=== PATIENT | male | born 1955 | race American Indian/Alaskan Native ===

== ENCOUNTER 2016-11-30 17:05 | Outpatient (CLI) | payer OTHER | END 2016-11-30 17:06 | disposition home or self-care (01) | LOC: LABHHL 17:05 | PROVIDERS: ATTEND Internal Medicine Gastroenterology | DX: Z12.11 Encounter for screening for malignant neoplasm of colon (principal); K64.8 Other hemorrhoids; K62.89 Other specified diseases of anus and rectum | CPT/HCPCS: 88305 ==

== ENCOUNTER 2018-07-23 13:01 | Outpatient (CLI) | payer MEDICARE ==
--- NOTE | 2018-07-23 14:24 | XRay Report ---
XRAY LEFT KNEE 2 VIEWS: 07/23/18 13:01:00 CLINICAL: Hard nodule in back of knee. FINDINGS: Mild osteopenia. No fracture or dislocation. Osteoarthritis of the medial joint with narrowing of joint space and small osteophytes. Irregularity of the medial femoral condyle but no loose body identified. The lateral joint space is normal. Osteoarthritis of the patellofemoral joint with small superior and inferior osteophytes. No joint effusion. A convex soft tissue density in the posterior soft tissues just superior to the femoral condyles is suggestive of a soft tissue mass or fluid mass. IMPRESSION: 1. Soft tissue mass or fluid filled mass in the posterior knee. Consider ultrasound to evaluate the soft tissues for a possible popliteal cyst. 2. Moderate osteoarthritis of the medial knee joint and the patellofemoral joint. MTDD
== END 2018-07-23 13:02 | disposition home or self-care (01) ==
LOC: SPVIMAG 13:01
PROVIDERS: ATTEND Family Medicine
DX: M17.12 Unilateral primary osteoarthritis, left knee (principal)

== ENCOUNTER 2019-04-10 08:13 | Outpatient (CLI) | payer OTHER ==
--- NOTE | 2019-04-10 10:00 | Ultrasound Report ---
ABDOMINAL ULTRASOUND: 04/10/19 08:13:00 CLINICAL: Leukemia and anemia. FINDINGS: High-resolution ultrasound demonstrates a normal liver with normal size, contour and echogenicity. No liver mass. Normal hepatic vasculature and inferior vena cava. A normally distended gallbladder with no stones. The gallbladder wall measures 1.6 mm. Normal intrahepatic and extrahepatic bile ducts. The common bile duct measures 4.2 mm diameter. The pancreas is not well imaged due to bowel gas . Normal abdominal aorta measuring 2.5 cm maximum. A normal spleen measures 10.6 cm. Normal renal echogenicity and normal non-dilated renal collecting systems and ureters. The right kidney measures 11.8 x 6.7 x 6.4 cm. The left kidney measures 12.7 x 6.2 x 5.5 cm. A cyst in the mid to upper pole of the left kidney measures 5.2 x 5.3 x 5.9 cm. No renal mass or calculus. No ascites. No mass or lymphadenopathy. IMPRESSION: 1. Normal liver and biliary tract. 2. Inadequate imaging of the pancreas. 3. A 5.9 cm left renal cyst. 4. No splenomegaly.
== END 2019-04-10 08:14 | disposition home or self-care (01) ==
LOC: SPVWC 08:13
PROVIDERS: ATTEND Internal Medicine Hematology & Oncology
DX: N28.1 Cyst of kidney, acquired (principal); C91.40 Hairy cell leukemia not having achieved remission
CPT/HCPCS: 76700